=== PATIENT | male | born 2000 | race Caucasian/White ===

== ENCOUNTER 2020-04-05 22:53 | Emergency (ER) | payer OTHER ==
[2020-04-06 00:11] LABS: BASO # 0.1 (0.02-0.10); EOS # 0.2 (0.04-0.40); EOS % 1.4 % (0.0-4.0); HEMATOCRIT 42.6 % (36.0-47.0); HEMOGLOBIN 14.1 g/dL (12.5-16.1); MEAN CELL VOLUME 86 fl (78-95); MEAN CORPUSCULAR HEMOGLOBIN 29 pg (26-32); MEAN CORPUSCULAR HGB CONC 33 g/dL (33-37); MEAN PLATELET VOLUME 10.6 fl (7.4-10.4); MONO # 1.1 (0.20-0.80); PLATELET COUNT 306 K/mm3 (130-400); RED BLOOD COUNT 4.95 M/mm3 (4.20-5.60); RED CELL DISTRIBUTION WIDTH 14.9 % (11.5-14.5); WHITE BLOOD COUNT 14.5 K/mm3 (4.8-10.8)
[2020-04-06 00:12] LABS: ALBUMIN 4.7 g/dL (3.5-5.0); POTASSIUM 3.9 mmol/L (3.5-5.1); SODIUM 143 mmol/L (136-145)
[2020-04-06 00:13] LABS: CALCIUM 9.3 mg/dL (8.3-10.5)
[2020-04-06 00:14] LABS: GLUCOSE 74 mg/dL (75-110); NEU # 11.2 (1.40-6.50); TOTAL PROTEIN 7.8 g/dL (6.4-8.3)
[2020-04-06 00:15] LABS: CARBON DIOXIDE 24 mmol/L (22-29)
[2020-04-06 00:16] LABS: TOTAL BILIRUBIN 0.4 mg/dL (0.2-1.2)
[2020-04-06 00:20] LABS: ALCOHOL IN-HOUSE < 10 mg/dL (<10); AST-SGOT 22 U/L (5-34)
[2020-04-06 00:21] LABS: ALT/SGPT 76 U/L (0-55)
[2020-04-06 00:25] LABS: ACETAMINOPHEN < 1 ug/mL
[2020-04-06 02:45] VITALS: BP 96/54
== END 2020-04-06 02:52 ==
LOC: ED 22:53
PROVIDERS: Nurse Practitioner Family
DX: R45.851 Suicidal ideations (principal); F19.10 Other psychoactive substance abuse, uncomplicated; F17.210 Nicotine dependence, cigarettes, uncomplicated
CPT/HCPCS: J1885

== ENCOUNTER 2021-11-20 13:55 | Emergency (ER) | payer SELFPAY ==
[2021-11-20 14:03] VITALS: BP 131/82
[2021-11-20 14:28] LABS: BASO # 0.04 K/mm3 (0.02-0.10); EOS # 0.13 K/mm3 (0.04-0.40); EOS % 1.4 % (0.0-4.0); HEMATOCRIT 39.4 % (42.0-52.0); LYMPH# 1.43 K/mm3 (1.50-4.00); MEAN CELL VOLUME 87 fl (78-100); MEAN CORPUSCULAR HEMOGLOBIN 29 pg (27-31); MEAN CORPUSCULAR HGB CONC 33 g/dL (33-37); MEAN PLATELET VOLUME 10.8 fl (7.4-10.4); MONO # 0.68 K/mm3 (0.20-0.80); NEU # 7.04 K/mm3 (1.40-6.50); PLATELET COUNT 182 K/mm3 (130-400); RED BLOOD COUNT 4.53 M/mm3 (4.20-5.60); RED CELL DISTRIBUTION WIDTH 13.9 % (11.5-14.5); WHITE BLOOD COUNT 9.3 K/mm3 (4.8-10.8)
[2021-11-20 14:39] LABS: PH-URINE 7.5 (5.0 - 8.0); URINE APPEARANCE CLEAR; URINE BILIRUBIN NEGATIVE (NEGATIVE); URINE BLOOD NEGATIVE (NEGATIVE); URINE COLOR YELLOW; URINE GLUCOSE NEGATIVE (NEGATIVE); URINE KETONE NEGATIVE (NEGATIVE); URINE LEUKOCYTE ESTERASE NEGATIVE (NEGATIVE); URINE NITRATE NEGATIVE (NEGATIVE); URINE PROTEIN(semi-quant) NEGATIVE (NEGATIVE); URINE UROBILINOGEN NORMAL (NORMAL); URINE WBC 0-1 /hpf (0-3)
[2021-11-20 14:41] LABS: ALBUMIN 4.4 g/dL (3.5-5.0); POTASSIUM 4.2 mmol/L (3.5-5.1)
[2021-11-20 14:42] LABS: SODIUM 140 mmol/L (136-145)
[2021-11-20 14:43] LABS: CALCIUM 9.3 mg/dL (8.3-10.5)
[2021-11-20 14:44] LABS: GLUCOSE 90 mg/dL (75-110); TOTAL PROTEIN 6.9 g/dL (6.4-8.3)
[2021-11-20 14:45] LABS: CARBON DIOXIDE 26 mmol/L (22-29)
[2021-11-20 14:46] LABS: TOTAL BILIRUBIN 0.3 mg/dL (0.2-1.2)
[2021-11-20 14:49] LABS: AST-SGOT 20 U/L (5-34)
[2021-11-20 14:51] LABS: ALT/SGPT 11 U/L (0-55)
[2021-11-20 14:52] LABS: ACETAMINOPHEN < 1 ug/mL; ALCOHOL IN-HOUSE < 10 mg/dL (<10)
== END 2021-11-20 17:18 | disposition home or self-care (01) ==
LOC: ED 13:55
PROVIDERS: Family Medicine
DX: R45.851 Suicidal ideations (principal); F32.A Depression, unspecified; F17.200 Nicotine dependence, unspecified, uncomplicated; Z28.310 Unvaccinated for COVID-19